=== PATIENT | male | born 1940 | race Caucasian/White ===

== ENCOUNTER 2017-01-22 17:11 | Emergency (ER) | payer MEDICARE ==
[~2017-01-22] VITALS: Ht 162.6 cm; Wt 88.7 kg
[~2017-01-22 17:11] MED LIST: 1-ME1LIQ PO; ACCU40TA10 PO; B12-1CHW CHEW; HYDR12.56 PO; LISI40TA PO; LOPR100T PO; RAPA8CAP PO; SULF500T35 PO
[2017-01-22 17:13] VITALS: BP 171/82; PULSE 63; RESP 18; TEMP 98.1; O2SAT 95
[2017-01-22] MEDS ORDERED: SODIUM CHLORIDE 0.9% FLUSH 10 ML FLUSH IVF PRN (17:30)
--- NOTE | 2017-01-22 17:33 | PD ---
HPI Chief Complaint: Abnormal Results Time Seen by Provider: 17:25 Travel History International Travel<30 days: No Contact w/Intl Traveler<30days: No Traveled to known affect area: No History of Present Illness HPI 76-year-old male with history of CAD, CABG, cardiomyopathy, carotid stenosis, hypertension, hyperlipidemia, PE, DVT, bladder cancer, sent here by his bakery demonstrator Dr. Zimmerman for elevated d-dimer to rule out PE. Patient is not on any anticoagulation. He has been having dyspnea with exertion for the last month. He denies cough. No hemoptysis. No chest pain. No calf or leg pain. PFSH Past Medical History Hx Anticoagulant Therapy: Yes (ASA 81MG DAILY) Arthritis: Yes Asthma: No Blood Disorders: No Heart Rhythm Problems: No Cancer: Yes (BLADDER CA) Cardiac Catheterization: Yes Cardiovascular Problems: Yes High Cholesterol: Yes Chemotherapy: No Chest Pain: Yes Congestive Heart Failure: Yes COPD: No Cerebrovascular Accident: Yes Diabetes: No Diminished Hearing: Yes Endocrine: No Gastrointestinal Disorders: Yes (REFLUX) GERD: No Genitourinary: Yes (BLADDER CANCER-2001) Headaches: No Hepatitis: No Hiatal Hernia: No Hypertension: Yes Immune Disorder: No Kidney Stones: No Medical other: Yes (ARTHRITIS) Musculoskeletal: Yes (CURRENTLY USING WALKER) Neurologic: Yes (NEUROPATHY LEFT LEG) Psychiatric: No Reproductive: No Respiratory: Yes (PE) Immunizations Current: Yes Migraines: No Myocardial Infarction: Yes Radiation Therapy: No Seizures: No Sleep Apnea: No Thyroid Disease: No Ulcer: No Tetanus Vaccination: < 5 Years Influenza Vaccination: Yes Past Surgical History Abdominal Surgery: No Appendectomy: No Cardiac Surgery: Yes Cholecystectomy: No Coronary Artery Bypass Graft: Yes (2005) Ear Surgery: No Endocrine Surgery: No Eye Surgery: No Genitourinary Surgery: Yes Gynecologic Surgery: No Neurologic Surgery: Yes (BACK) Oral Surgery: No Thoracic Surgery: Yes Other Surgery: Yes (CABG, RIGHT KNEE ARTHROSCOPY, L4-L5 BACK SURGERY) Social History Alcohol Use: Yes (WINE/VOKA 2 GLASSES A DAY 11/21/07) Tobacco Use: No Substance Use: No Allergies-Medications (Allergen,Severity, Reaction): Coded Allergies: Contrast Media (Verified Allergy, Intermediate, ITCHING, RASH, 01/22/17) Reported Meds & Prescriptions Reported Meds & Active Scripts Active Reported Alcortin A Topical (Kvghqglhij-Pafjdmypnushdj-Nyij Topical) 1-2-1% Gel 1 Applic TOPICAL TID Clobetasol Emollient Topical 0.05% Cream 1 Applic TOPICAL BID Cephalexin 250 Mg Cap 250 Mg PO DAILY Aspirin EC (Aspirin) 81 Mg Tabdr 81 Mg PO DAILY B Complex (Vitamin B Complex) 1 Each Tablet 1 Tab PO DAILY Sulfasalazine 500 Mg Tab 500 Mg PO BID Metoprolol Tartrate 100 Mg Tab 150 Mg PO BID Amlodipine (Amlodipine Besylate) 5 Mg Tab 5 Mg PO DAILY Hydralazine HCl 25 Mg Tablet 50 Mg PO BID Valsartan 160 Mg Tab 160 Mg PO BID Simvastatin 10 Mg Tab 10 Mg PO DAILY Tamsulosin (Tamsulosin HCl) 0.4 Mg Cap 0.4 Mg PO HS Review of Systems Except as stated in HPI: all other systems reviewed are Neg Physical Exam Narrative GENERAL: Well-developed, well-nourished, comfortable, no acute distress. SKIN: Focused skin assessment warm/dry. HEAD: Atraumatic. Normocephalic. EYES: Pupils equal and round. No scleral icterus. No injection or drainage. ENT: Mucous membranes pink and moist. NECK: Trachea midline. No JVD. CARDIOVASCULAR: Regular rate and rhythm. RESPIRATORY: No accessory muscle use. Clear to auscultation. Breath sounds equal bilaterally. MUSCULOSKELETAL: No obvious deformities. No clubbing. No cyanosis. No edema. Bilateral calves are supple, nontender. NEUROLOGICAL: Awake and alert. No obvious cranial nerve deficits. Motor grossly within normal limits. Normal speech. PSYCHIATRIC: Appropriate mood and affect; insight and judgment normal. Data Data Last Documented VS Vital Signs Date Time Temp Pulse Resp B/P Pulse Ox O2 Delivery O2 Flow Rate FiO2 01/22/17 19:11 18 94 Nasal Cannula 2 01/22/17 19:09 74 213/82 01/22/17 17:13 98.1 Orders Basic Metabolic Panel (Bmp) (01/22/17 17:29) Ckmb (Isoenzyme) Profile (01/22/17 17:29) Complete Blood Count With Diff (01/22/17 17:29) Prothrombin Time / Inr (Pt) (01/22/17 17:29) Act Partial Throm Time (Ptt) (01/22/17 17:29) Troponin I (01/22/17 17:29) Chest, Single Ap (01/22/17 17:29) Ecg Monitoring (01/22/17 17:29) Iv Access Insert/Monitor (01/22/17 17:29) Oximetry (01/22/17 17:29) Sodium Chloride 0.9% Flush (Ns Flush) (01/22/17 17:30) Ventilation & Perfusion Scan (01/22/17 ) Labs Laboratory Tests Test 01/22/17 17:25 White Blood Count 5.3 TH/MM3 Red Blood Count 4.56 MIL/MM3 Hemoglobin 14.9 GM/DL Hematocrit 44.1 % Mean Corpuscular Volume 96.6 FL Mean Corpuscular Hemoglobin 32.6 PG Mean Corpuscular Hemoglobin 33.7 % Concent Red Cell Distribution Width 13.9 % Platelet Count 171 TH/MM3 Mean Platelet Volume 8.7 FL Neutrophils (%) (Auto) 59.2 % Lymphocytes (%) (Auto) 20.0 % Monocytes (%) (Auto) 15.4 % Eosinophils (%) (Auto) 4.6 % Basophils (%) (Auto) 0.8 % Neutrophils # (Auto) 3.2 TH/MM3 Lymphocytes # (Auto) 1.1 TH/MM3 Monocytes # (Auto) 0.8 TH/MM3 Eosinophils # (Auto) 0.2 TH/MM3 Basophils # (Auto) 0.0 TH/MM3 CBC Comment DIFF FINAL Differential Comment Prothrombin Time 11.4 SEC Prothromb Time International 1.0 RATIO Ratio Activated Partial 27.1 SEC Thromboplast Time Sodium Level 143 MEQ/L Potassium Level 4.1 MEQ/L Chloride Level 110 MEQ/L Carbon Dioxide Level 27.7 MEQ/L Anion Gap 5 MEQ/L Blood Urea Nitrogen 28 MG/DL Creatinine 1.30 MG/DL Estimat Glomerular Filtration 53 ML/MIN Rate Random Glucose 103 MG/DL Calcium Level 9.0 MG/DL Total Creatine Kinase 58 U/L Troponin I LESS THAN 0.02 NG/ML MDM Medical Decision Making Medical Screen Exam Complete: Yes Emergency Medical Condition: Yes Medical Record Reviewed: Yes Differential Diagnosis PE, ACS, pneumothorax, pneumonia Narrative Course Initial vital signs show heart rate 63, blood pressure 171/82, pulse ox 95% on room air, oral temp of 98.1F. CBC is unremarkable. BMP is unremarkable. Cardiac enzymes are negative. Chest x-ray: No acute disease. VQ scan: CONCLUSION: Low probability for pulmonary embolus. Case discussed with the patient's bakery demonstrator Dr. Zimmerman who states the patient can follow-up with him in the next 1-2 weeks. Patient and the patient' s significant other were made aware of all findings. He is resting comfortably. He is stable for discharge home. He was informed on when to return to the emergency department. He verbalizes understanding and agreement with plan. Diagnosis Primary Impression: Dyspnea on exertion Referrals: Marilu Zimmerman MD 1 week Primary Care Physician 3 days Additional Instructions: Follow-up with your primary care physician this week. Follow-up with your bakery demonstrator Dr. Zimmerman in the next 1-2 weeks. Return to the emergency department for worsening symptoms or any other concerns. Disposition: 01 DISCHARGE HOME Condition: Stable Sj Crabtree MD Jan 22, 2017 17:33
[2017-01-22] MEDS ORDERED: ASPI81TA11 PO (17:37)
[2017-01-22] MEDS ORDERED: VALS1TAB65 PO (17:37)
[2017-01-22] MEDS ORDERED: [UNRECOGNIZED DRUG - CODE] TOPICAL (17:37)
[2017-01-22] MEDS ORDERED: RA BTAB PO (17:37)
[2017-01-22] MEDS ORDERED: AMLO5TAB2 PO (17:37)
[2017-01-22] MEDS ORDERED: SIMV10TA PO (17:37)
[2017-01-22] MEDS ORDERED: CEPH250C PO (17:37)
[2017-01-22] MEDS ORDERED: METO100T PO (17:37)
[2017-01-22] MEDS ORDERED: TAMS0.4C4 PO (17:37)
[2017-01-22] MEDS ORDERED: SULF500T3 PO (17:37)
[2017-01-22] MEDS ORDERED: CLOB0.0571 TOPICAL (17:37)
[2017-01-22] MEDS ORDERED: HYDR-3799 PO (17:37)
[2017-01-22 17:41] VITALS: BP 196/76; PULSE 64; RESP 20; O2SAT 93
[2017-01-22 17:53] LABS: CHLORIDE 110 MEQ/L (98-107); POTASSIUM 4.1 MEQ/L (3.5-5.1); SODIUM (NA) 143 MEQ/L (136-145)
[2017-01-22 17:56] LABS: ANION GAP 5 MEQ/L (5-15); AUTOMATED NEUTROPHIL # 3.2 TH/MM3 (1.8-7.7); BASOPHIL % 0.8 % (0.0-2.0); BICARBONATE 27.7 MEQ/L (21.0-32.0); BLOOD UREA NITROGEN 28 MG/DL (7-18); EOSINOPHIL # 0.2 TH/MM3 (0-0.4); EOSINOPHIL % 4.6 % (0.0-4.0); HEMATOCRIT 44.1 % (39.0-51.0); HEMO FLAGS DIFF FINAL; LYMPHOCYTE # 1.1 TH/MM3 (1.0-4.8); MEAN CELL VOLUME 96.6 FL (80.0-100.0); MEAN CORPUSCULAR HEMOGLOBIN 32.6 PG (27.0-34.0); MEAN CORPUSCULAR HGB CONC 33.7 % (32.0-36.0); MONO % 15.4 % (0.0-8.0); NEUT % 59.2 % (16.0-70.0); PLATELET COUNT 171 TH/MM3 (150-450); RED BLOOD COUNT 4.56 MIL/MM3 (4.50-5.90); RED CELL DISTRIBUTION WIDTH 13.9 % (11.6-17.2); WHITE BLOOD COUNT 5.3 TH/MM3 (4.0-11.0)
[2017-01-22 17:58] LABS: APTT (PATIENT) 27.1 SEC (24.3-30.1); PROTHROMBIN TIME - PATIENT 11.4 SEC (9.8-11.6)
[2017-01-22 18:00] LABS: GLOMERULAR FILTRATION RATE 53 ML/MIN (>89)
--- NOTE | 2017-01-22 18:04 | RADHPO ---
EXAM DATE/TIME: 01/22/2017 17:49 [facility] COMPARISON: CHEST SINGLE AP, September 17, 2014, 17:08. INDICATIONS : Chest pain. MEDICAL HISTORY : None. SURGICAL HISTORY : CABG. ENCOUNTER: Initial ACUITY: 1 day PAIN SCORE: 7/10 LOCATION: Bilateral chest FINDINGS: A single view of the chest demonstrates the lungs to be symmetrically aerated without evidence of mas s, infiltrate or effusion. The cardiomediastinal contours are unremarkable. Osseous structures are intact. Median sternotomy wires. CONCLUSION: No acute disease. Konrad Dejesus Jr., MD on January 22, 2017 at 18:02 Board Certified Radiologist. This report was verified electronically.
[2017-01-22 18:09] LABS: CREATINE KINASE 58 U/L (39-308)
[2017-01-22 18:35] VITALS: BP 187/84; PULSE 78; RESP 18; O2SAT 92
[2017-01-22 19:09] VITALS: BP 213/82; PULSE 74; RESP 16; O2SAT 94
--- NOTE | 2017-01-22 20:09 | RADHPO ---
EXAM DATE/TIME: 01/22/2017 19:35 [facility] COMPARISON: CHEST SINGLE AP, January 22, 2017, 17:49. INDICATIONS : Shortness of breath with elevated labs. DOSE: 8.7 mCi Tc99m MAA IV 1.4 mCi Tc99m DTPA aerosol MEDICAL HISTORY : Cardiovascular disease. Hypertension. Carcinoma, bladder. SURGICAL HISTORY : CABG ENCOUNTER: Initial ACUITY: 1 day PAIN SCALE: 0/10 LOCATION: chest TECHNIQUE: Following five minutes of tidal breathing of DTPA aerosol, planar images of the lungs were performed in eight projections. The patient was then injected with MAA, and eight-view perfusion scan was perf ormed. FINDINGS: A single subsegmental defect is seen involving the superior segment left lower lobe. This defect is p resent on the ventilation and perfusion images. No correlate on the chest x-ray. The remaining lung p arenchyma shows homogeneous uptake of the radiopharmaceutical on the ventilation and perfusion images . CONCLUSION: Low probability for pulmonary embolus. Konrad Dejesus Jr., MD on January 22, 2017 at 20:07 Board Certified Radiologist. This report was verified electronically.
[2017-01-22 20:42] VITALS: BP 202/80
== END 2017-01-22 20:44 | disposition home or self-care (01) ==
LOC: PHED 17:11
DX: R06.00 Dyspnea, unspecified (principal); I10 Essential (primary) hypertension; E78.5 Hyperlipidemia, unspecified; H91.90 Unspecified hearing loss, unspecified ear; I25.2 Old myocardial infarction; Z79.82 Long term (current) use of aspirin; Z95.1 Presence of aortocoronary bypass graft; Z86.79 Personal history of other diseases of the circulatory system; Z86.711 Personal history of pulmonary embolism; Z86.718 Personal history of other venous thrombosis and embolism; Z87.39 Personal history of other diseases of the musculoskeletal system and connective tissue; Z86.69 Personal history of other diseases of the nervous system and sense organs
CPT/HCPCS: 71010; 78582; 80048; 82550; 84484; 85025; 85610; 85730; 99284; A9540; A9567

== ENCOUNTER → 2017-02-15 | Outpatient (CLI) | payer MEDICARE ==
[~2017-02-15] MED LIST changes: -1-ME1LIQ PO; -ACCU40TA10 PO; +AMLO5TAB2 PO; +ASPI81TA11 PO; -B12-1CHW CHEW; +CEPH250C PO; +CLOB0.0571 TOPICAL; +HYDR-3799 PO; -HYDR12.56 PO; -LISI40TA PO; -LOPR100T PO; +METO100T PO; +RA BTAB PO; -RAPA8CAP PO; +SIMV10TA PO; +SULF500T3 PO; -SULF500T35 PO; +TAMS0.4C4 PO; +VALS1TAB65 PO; +[UNRECOGNIZED DRUG - CODE] TOPICAL
--- NOTE | 2017-02-16 11:22 | RSPPFT ---
DATE OF PROCEDURE: 02/15/17 COMMENTS: VOLUMES DYNAMIC: FVC and FEV1 normal. STATIC: TLC mildly reduced; FRC mildly reduced, RV normal. FLOWS: FEV1% normal; FEF 25-75 mildly reduced. DIFFUSION: Normal. FLOW VOLUME LOOP: Mild restrictive configuration. IMPRESSION: This is a very mild restrictive ventilatory defect with terminal airflow obstruction and normal diffusion. There is no significant improvement post-bronchodilator.
== END ==
LOC: PHRSP 07:19
PROVIDERS: ATTEND Internal Medicine Cardiovascular Disease
DX: R06.02 Shortness of breath (principal)
CPT/HCPCS: 94060; 94726; 94729

== ENCOUNTER 2017-12-17 17:15 | Emergency (ER) | payer MEDICARE ==
[~2017-12-17] VITALS: Ht 165.1 cm; Wt 92.2 kg
[~2017-12-17 17:15] MED LIST changes: -ASPI81TA11 PO; +ASPI81TA23 PO
[2017-12-17 18:02] VITALS: BP 205/84; PULSE 67; RESP 20; TEMP 98.1; O2SAT 93
[2017-12-17] MEDS ORDERED: BENZ100 PO (19:04)
[2017-12-17] MEDS ORDERED: PRED10PA PO (19:04)
[2017-12-17] MEDS ORDERED: AZIT250T3 PO (19:04)
--- NOTE | 2017-12-17 19:12 | PD ---
HPI Chief Complaint: Cold / Flu Symptoms Time Seen by Provider: 19:02 Travel History International Travel<30 days: No Contact w/Intl Traveler<30days: No Traveled to known affect area: No History of Present Illness HPI History failure this man is a 77-year-old male patient of Dr. Selena De La Rosa. Patient started with an onset of productive cough since Wednesday, ongoing and repetitive, the patient went to see primary care doctor on both Wednesday and , at that time he was tested for the flu which was negative. Patient was initiated on Solu-Medrol, albuterol, and Z-Brando. Despite all these treatments the patient comes in today complaining of ongoing productive cough that has not changed. No alleviating or aggravating factors. Patient denies any associated factors such as fever, headache, visual changes, sore throat, chest pain, abdominal pain, flank pain, urinary frequency or urgency, nausea/ vomiting or diarrhea. Patient has allergies to IV contrast Past medical history significant for neuropathy on left leg, CVA, CABG, AR, congestive heart failure, hypercholesterolemia, hyperlipidemia, hypertension, previous pulmonary embolus history, previous history of GERD, previous history of bladder cancer, previous history of benign prostatic hyperplasia PFSH Past Medical History Hx Anticoagulant Therapy: Yes (ASA) Arthritis: Yes Asthma: No Blood Disorders: No Heart Rhythm Problems: No Cancer: Yes (BLADDER CA) Cardiac Catheterization: Yes Cardiovascular Problems: Yes (CABG) High Cholesterol: Yes Chemotherapy: No Chest Pain: Yes Congestive Heart Failure: Yes COPD: No Cerebrovascular Accident: Yes Diabetes: No Diminished Hearing: Yes Endocrine: No Gastrointestinal Disorders: Yes (REFLUX) GERD: No Genitourinary: Yes (BLADDER CANCER-2001) Headaches: No Hepatitis: No Hiatal Hernia: No Hypertension: Yes Immune Disorder: No Kidney Stones: No Musculoskeletal: Yes (CURRENTLY USING WALKER) Neurologic: Yes (NEUROPATHY LEFT LEG) Psychiatric: No Reproductive: No Respiratory: Yes (PE) Immunizations Current: Yes Migraines: No Myocardial Infarction: Yes Radiation Therapy: No Seizures: No Sleep Apnea: No Thyroid Disease: No Ulcer: No ?: Not Past Surgical History Abdominal Surgery: No Appendectomy: No Cardiac Surgery: Yes Cholecystectomy: No Coronary Artery Bypass Graft: Yes (2005) Ear Surgery: No Endocrine Surgery: No Eye Surgery: No Genitourinary Surgery: Yes Gynecologic Surgery: No Neurologic Surgery: Yes (BACK) Oral Surgery: No Thoracic Surgery: Yes Other Surgery: Yes (CABG, RIGHT KNEE ARTHROSCOPY, L4-L5 BACK SURGERY) Social History Alcohol Use: Yes (WINE/VOKA 2 GLASSES A DAY 11/21/07) Tobacco Use: No Substance Use: No Allergies-Medications (Allergen,Severity, Reaction): Coded Allergies: diatrizoate meglumine (Unverified Allergy, Intermediate, ITCHING, RASH, ) gadobenic acid (Unverified Allergy, Intermediate, ITCHING, RASH, 12/17/17) gadodiamide (Unverified Allergy, Intermediate, ITCHING, RASH, 12/17/17) gadoteridol (Unverified Allergy, Intermediate, ITCHING, RASH, 12/17/17) iodixanol (Unverified Allergy, Intermediate, ITCHING, RASH, 12/17/17) iohexol (Unverified Allergy, Intermediate, ITCHING, RASH, 12/17/17) Reported Meds & Prescriptions Reported Meds & Active Scripts Active Reported Tessalon Perles (Benzonatate) 100 Mg Cap 100 Mg PO TID PRN Prednisone (21) 10 mg tab Dose Pack (Prednisone) 10 Mg Pack 10 Mg PO DIRECTED Azithromycin 250 Mg Tab 250 Mg PO DIRECTED Take 2 tabs (500 mg) on day 1 then 1 tab daily x 4 days. Aspirin EC (Aspirin) 81 Mg Tabdr 81 Mg PO DAILY B Complex (Vitamin B Complex) 1 Each Tablet 1 Tab PO DAILY Sulfasalazine 500 Mg Tab 500 Mg PO BID Metoprolol Tartrate 100 Mg Tab 150 Mg PO BID Amlodipine (Amlodipine Besylate) 5 Mg Tab 5 Mg PO DAILY Hydralazine HCl 25 Mg Tablet 50 Mg PO BID Valsartan 160 Mg Tab 160 Mg PO BID Simvastatin 10 Mg Tab 10 Mg PO DAILY Tamsulosin (Tamsulosin HCl) 0.4 Mg Cap 0.4 Mg PO BID Review of Systems General / Constitutional: No: Fever Eyes: No: Visual changes HENT: No: Headaches Cardiovascular: No: Chest Pain or Discomfort Respiratory: Positive: Cough, Wheezing Gastrointestinal: No: Abdominal Pain Genitourinary: No: Dysuria Musculoskeletal: No: Pain Skin: No Rash Neurologic: No: Weakness Psychiatric: No: Depression Endocrine: No: Polydipsia Hematologic/Lymphatic: No: Easy Bruising Physical Exam Narrative GENERAL: SKIN: Warm and dry. HEAD: Atraumatic. Normocephalic. EYES: Pupils equal and round. No scleral icterus. No injection or drainage. ENT: No nasal bleeding or discharge. Mucous membranes pink and moist. NECK: Trachea midline. No JVD. CARDIOVASCULAR: Regular rate and rhythm. RESPIRATORY: No accessory muscle use. Clear to auscultation. Breath sounds equal bilaterally. Scattered wheezing with good tidal volume. No tripoding, no retractions GASTROINTESTINAL: Abdomen soft, non-tender, nondistended. MUSCULOSKELETAL: Extremities without clubbing, cyanosis, or edema. No obvious deformities. NEUROLOGICAL: Awake and alert. No obvious cranial nerve deficits. Motor grossly within normal limits. Five out of 5 muscle strength in the arms and legs. Normal speech. PSYCHIATRIC: Appropriate mood and affect; insight and judgment normal. Data Data Last Documented VS Vital Signs Date Time Temp Pulse Resp B/P (MAP) Pulse Ox O2 Delivery O2 Flow Rate FiO2 12/17/17 18:02 98.1 67 20 205/84 (124) 93 Orders Orders Chest, Pa & Lat (12/17/17 19:02) Albuterol-Ipratropium Neb (Duoneb Neb) (12/17/17 19:15) Dexamethasone Inj (Decadron Inj) (12/17/17 19:15) Hydrocodone-Homatropine Liq (Hycodan Liq (12/17/17 19:15) MDM Medical Decision Making Medical Screen Exam Complete: Yes Emergency Medical Condition: Yes Medical Record Reviewed: Yes Differential Diagnosis Pneumonia versus bronchitis versus bronchospasm Narrative Course Chest x-ray does not show any evidence of consolidation, pulmonary edema or pleural effusion per radiologist. Patient was ambulated around the ER once he came back and sat down his repeat pulse ox was performed which still show that he was 95-98% on room air.... This was after he received breathing treatment. Patient and both stated that he is feeling better and looks better, and were made aware of the chest x-ray results. Patient was advised to continue taking his prednisone. And that I will be prescribing albuterol nebulizer to assist him with his bronchospasm. Diagnosis Primary Impression: Bronchospasm Patient Instructions: Bronchospasm (ED), General Instructions Scripts Albuterol 6.7 GM Inh (Proventil Hfa 6.7 GM Inh) 90 Mcg/Act Aer 2 PUFF INH Q4-6H Y for SHORTNESS OF BREATH, #1 INHALER 1 Refill Prov: Chiki Earl MD 12/17/17 Disposition: 01 DISCHARGE HOME Condition: Stable Chiki Earl MD Dec 17, 2017 19:12
[2017-12-17] MEDS ORDERED: HYDROcodone 5 MG/HOMATROPINE 1.5 MG SYRUP 5 ML CUP PO ONE (19:15)
[2017-12-17] MEDS ORDERED: DEXAMETHASONE SOD PHOS 4 MG/ML VIAL IM ONE (19:15)
[2017-12-17] MEDS: RESP: ALBUTEROL 2.5 MG/IPRATROPIUM 0.5 MG NEB (SCH) INH ×2 (19:25→19:34)
--- NOTE | 2017-12-17 20:13 | RADRPT ---
EXAM DATE/TIME: 12/17/2017 19:29 [facility] COMPARISON: No previous studies available for comparison. INDICATIONS : Cough. MEDICAL HISTORY : Cardiovascular disease. Hypertension. Carcinoma, bladder SURGICAL HISTORY : CABG. ENCOUNTER: Initial ACUITY: 1 week PAIN SCORE: 0/10 LOCATION: Bilateral chest FINDINGS: PA and lateral views of the chest demonstrate the lungs to be symmetrically aerated without evidence of mass, infiltrate or effusion. The cardiomediastinal contours are unremarkable. Osseous structure s are intact. CONCLUSION: No evidence of acute cardiopulmonary disease. Jake Knight MD on December 17, 2017 at 20:10 Board Certified Radiologist. This report was verified electronically.
[2017-12-17] MEDS ORDERED: ALBU6.7H INH (20:25)
[2017-12-17 20:35] VITALS: BP 168/72; PULSE 64; RESP 20
== END 2017-12-17 20:42 | disposition home or self-care (01) ==
LOC: PHEFT 17:15
DX: J98.01 Acute bronchospasm (principal); I11.0 Hypertensive heart disease with heart failure; I50.9 Heart failure, unspecified; E78.5 Hyperlipidemia, unspecified; K21.9 Gastro-esophageal reflux disease without esophagitis; G57.92 Unspecified mononeuropathy of left lower limb; I25.2 Old myocardial infarction; Z86.711 Personal history of pulmonary embolism; Z86.73 Personal history of transient ischemic attack (TIA), and cerebral infarction without residual deficits
CPT/HCPCS: 71046; 94640; 94664; 96372; 99283; J1100